=== PATIENT | male | born 2000 | race Hispanic/Latino ===

== ENCOUNTER 2018-02-06 02:20 | Emergency (ER) | payer MEDICAID ==
[2018-02-06] MEDS ORDERED: ACETAMINOPHEN-CODEINE 300/30MG TAB ONE (03:52)
== END 2018-02-06 04:01 | disposition home or self-care (01) ==
LOC: EDH 02:20
DX: T16.2XXA Foreign body in left ear, initial encounter (principal); T16.1XXA Foreign body in right ear, initial encounter; J45.909 Unspecified asthma, uncomplicated; X58.XXXA Exposure to other specified factors, initial encounter; Y93.89 Activity, other specified; Y92.89 Other specified places as the place of occurrence of the external cause; Y99.8 Other external cause status
CPT/HCPCS: 69200

== ENCOUNTER 2018-06-18 18:57 | Emergency (ER) | payer MEDICAID ==
[2018-06-18] MEDS ORDERED: ACETAMINOPHEN EXTRA STRENGTH 500 MG TABLET ONE (20:03)
[2018-06-18] MEDS ORDERED: METHYLPREDNISOLONE SOD SUCC 125MG/2ML VIAL ONE (20:03)
[2018-06-18] MEDS ORDERED: IPRATROPIUM/ALBUTEROL SULFATE 3 ML SOLUTION IH ONE (20:13)
== END 2018-06-18 20:48 | disposition home or self-care (01) ==
LOC: EDH 18:57
DX: J45.21 Mild intermittent asthma with (acute) exacerbation (principal); J06.9 Acute upper respiratory infection, unspecified; I10 Essential (primary) hypertension; Z79.899 Other long term (current) drug therapy
CPT/HCPCS: 87804 ×2; 94640; 96372; 99283; J2930